=== PATIENT | female | born 1955 | race African-American/Black ===

== ENCOUNTER 2017-02-12 13:57 | Emergency (ER) | payer OTHER ==
[~2017-02-12] VITALS: Ht 157.5 cm; Wt 85.7 kg
[2017-02-12] MEDS ORDERED: LISINOPRIL10 MG PO (14:58)
[2017-02-12 15:54] VITALS: BP 122/84
== END 2017-02-12 15:37 | disposition home or self-care (01) ==
LOC: ER 13:57
DX: R09.89 Other specified symptoms and signs involving the circulatory and respiratory systems (principal); S27.818A Other injury of esophagus (thoracic part), initial encounter; F10.99 Alcohol use, unspecified with unspecified alcohol-induced disorder; X58.XXXA Exposure to other specified factors, initial encounter; Y93.89 Activity, other specified; Y92.89 Other specified places as the place of occurrence of the external cause; Y99.8 Other external cause status